=== PATIENT | female | born 2005 | race Caucasian/White ===

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

== ENCOUNTER 2023-01-01 01:58 | Inpatient (IN) ==
[2023-01-01 02:48] LABS: Appearance Urine Cloudy (Clear); Bacteria Urine Automated 2+ (Negative); Bilirubin Urine Negative (Negative); Blood Urine Negative (Negative); Color Urine Yellow; Epithelial Cell Urine Auto >30 /lpf (0-5); Glucose Urine UA Negative (Negative); Ketones Urine Negative (Negative); Leukocyte Esterase Urine 3+ (Negative); Nitrite Urine Negative (Negative); Protein Urine Negative (Negative); RBC Urine Automated 0-4 /hpf (0-4); Specific Gravity Urine 1.007 (1.000-1.030); Urobilinogen Urine Negative (Negative)
[2023-01-01 02:57] LABS: Basophils # (auto) 0.04 K/uL (0-0.2); Basophils % (auto) 0.6 %; Eosinophils # (auto) 0.11 K/uL (0-0.50); Eosinophils % (auto) 1.6 %; Hematocrit (blood only) 36.3 % (37.0-47.0); Hemoglobin 12.5 g/dl (12.0-16.0); Immature Granulocytes # (auto) 0.02 K/uL (0.01-0.20); Immature Granulocytes % (auto) 0.3 %; Lymphocytes # (auto) 2.72 K/uL (1.2-3.4); Lymphocytes % (auto) 38.7 %; Mean Corpuscular Hemoglobin 32.8 pg (25.0-34.0); Mean Corpuscular Hgb Conc 34.4 g/dL (32.0-36.0); Mean Corpuscular Volume 95.3 fL (80.0-100.0); Mean Platelet Volume 10.4 fL (9.4-12.4); Monocytes # (auto) 0.51 K/uL (0.11-0.59); Monocytes % (auto) 7.3 %; Neutrophils # (auto) 3.63 K/uL (1.40-6.50); Neutrophils % (auto) 51.5 %; Platelet Count 348 K/uL (130-400); RDW Coefficient of Variation 11.7 % (11.5-14.5); RDW Standard Deviation 40.6 fL (36.4-46.3); Red Blood Count 3.81 M/uL (4.20-5.40); White Blood Count 7.03 K/ul (4.8-10.8)
[2023-01-01 03:05] LABS: Alanine Aminotransferase 19 U/L (7-52); Albumin Globulin Ratio 1.4 (0.9-2); Albumin Level 4.2 gm/dl (3.4-5.0); Alkaline Phosphatase 76 U/L (34-104); Anion Gap 4 (3-11); Aspartate Aminotransferase 20 U/L (13-39); BUN Creatinine Ratio 11.8 (10-20); Bilirubin,Total 0.7 mg/dl (0.2-1.0); Blood Urea Nitrogen 8 mg/dl (6-23); Calcium 9.3 mg/dl (8.6-10.3); Carbon Dioxide 26 mmol/L (21-32); Chloride 106 mmol/L (98-107); Est GFR (Non-African American) 126.8 ml/min; Glucose 93 mg/dl (70-99(Fasting)); Potassium 3.9 mmol/L (3.5-5.1); Sodium 136 mmol/L (136-145); Total Protein 7.2 gm/dl (6.0-8.3)
[2023-01-01 03:16] LABS: Amphetamines+Metham, Urine Neg (Neg); Barbiturates, Urine Neg (Neg); Benzodiazepine, Urine Neg (Neg); Cocaine, Urine Neg (Neg); MDMA (Ecstacy), Urine Neg (Neg); Methadone, Urine Neg (Neg); Opiate, Urine Neg (Neg); Phencyclidine, Urine Neg (Neg)
--- NOTE | 2023-01-01 07:03 | Emergency Department Note ---
Impression & Plan Suicidal ideation Admit to 3 S. ED Provider Note NAME: MINE GONZALEZ AGE: 17 SEX: F ARRIVES VIA: Walk-In INFORMANT: Patient and his mother ED PROVIDER(S): Kasandra Springer DO CHIEF COMPLAINT: "Effexor withdrawal" PLAN: Disposition: Admit to 3 S. Condition: Stable MEDICAL DECISION MAKING: This is a 17-year-old patient transitioning female to male who presents to the emergency department with suicidal ideation. Patient has had thoughts of wanting to overdose on medications. Patient describes significant emotional pain, high anxiety and disconnection. He has had thoughts of wanting to overdose on his medications. 2 days ago, he told the community case manager he had a handful of pills in preparation to overdose. The patient had been taken off of his Effexor 5 days ago and placed on Pristiq which was associated with significant side effects. The patient had laboratory studies drawn here which were essentially normal. He was medically cleared and evaluated by the ED psychiatric community case manager. Patient does admit to suicidal ideation and is willing to admit himself voluntarily for inpatient psychiatric care. A bed search was performed and there were beds available here on 3 S. They are willing to admit him. Triage Nursing notes reviewed and agree with them. Additional history obtained from his mother who is at the bedside Prior medical records reviewed Vital Signs: reviewed and unremarkable Differential diagnosis: Mood disorder, thought disorder, suicidal ideation Diagnostics interpreted by me: Laboratory studies: See below HPI: 17/F arrives for evaluation of suicidal ideation. Patient presents here complaining of Effexor withdrawal and emotional pain. Patient's last dose of Ef fexor was 5 days ago. They tried to replace this with Pristiq but this did not go well so they stopped that medication. Patient describes feeling high anxiety and disconnected. As a result of this, he felt suicidal with plans to overdose on pills. PAST MEDICAL HISTORY:See Below PAST SURGICAL HISTORY:See Below FAMILY HISTORY:See Below SOCIAL HISTORY:See Below HOME MEDICATIONS:See list ALLERGIES:See list VITALS:See Below PHYSICAL EXAMINATION: HEENT: Head - normocephalic and atraumatic. Pupils are equal, round, and reactive to light. Extraocular eye muscles are intact, and sclera are anicteric. Nose - moist nasal mucosa without discharge. Mouth - moist buccal mucosa. Oropharynx is nonerythematous and there is no tonsillar exudate or edema noted. Neck: Supple; no cervical lymphadenopathy Heart: Regular rate and rhythm. There is a normal S1 and S2 with no murmurs, clicks, or gallops appreciated. Lungs: Clear to auscultation bilaterally with no wheezes, rales, or rhonchi. Abdomen: Soft, completely nontender, nondistended, with good bowel sounds. There are no palpable pulsatile masses or hepatosplenomegaly. There is no guarding, rigidity, or rebound noted. Extremities: No evidence of cyanosis, clubbing, or edema. There are easily palpable peripheral pulses. Skin: warm and dry with good turgor and no rashes. Psych: Patient has a flat affect and avoids eye contact. He describes emotional pain and anxiety. He does not appear anxious on my exam at this time. He does admit to suicidal thoughts. ED COURSE: Times/Reassessments: 405. Patient was evaluated in room A-8. A complete history and physical was performed. Laboratory studies were drawn as above. The patient was medically cleared and evaluated by the ED psychiatric community case manager. The patient is willing to admit himself voluntarily. [facility] has beds available and they will admit him. Kasandra Springer, DO Past Med/Surg History Medical History Anxiety Autism spectrum disorder Functional heart murmur Mood disorder Surgical History No significant past surgical history Social History Smoking Status: Never smoker Preferred Language: [place] Communication Ability: Effective [employer]ine [employer] Required: No Beliefs That Will Affect Care: None Feels Safe at Home: Yes Gender Identity: Transgender Male Assistive Devices: None Allergies Allergies Allergy/AdvReac Type Severity Reaction Status Date / Time diazepam Allergy Severe THROAT Verified 11/09/22 03:08 CLOSING pine nut Allergy Severe THROAT Verified 11/09/22 03:08 CLOSING coconut Allergy Mild "MAKES HER Verified 11/09/22 03:08 FEEL FUNNY" -MOM TREE NUTS Allergy Intermediate HIVES Uncoded 11/09/22 03:08 Home Meds Home Medications Medication Instructions Recorded Confirmed lithium carbonate 300 mg capsule 300 mg PO QAM 01/19/19 01/01/23 gabapentin 100 mg capsule See Rx Instructions .Route .COMPLEX 11/09/22 01/01/23 lithium carbonate 450 mg 450 mg PO QPM 11/09/22 01/01/23 tablet,extended release norelgestromin 150 mcg-e.estradiol 1 patch transdermal WK 11/09/22 01/01/23 35 mcg/24 hr weekly transderm patch (Xulane) desvenlafaxine succinate 25 mg 25 mg PO DAILY 01/01/23 01/01/23 tablet,extended release 24 hr Results & Data (ED) Vital Signs Vital Signs - 24 hr 01/01/23 02:02 01/01/23 06:03 Temperature 36.9 C 36.8 C Temperature Source Temporal Artery Scan Oral Pulse Rate 84 Pulse Rate [Right Finger] 68 Pulse Rhythm Regular Pulse Rhythm [Right Finger] Regular Pulse Strength Normal Pulse Strength [Right Finger] Normal Respiratory Rate 17 16 Respiratory Effort / Characteristics Non-Labored Spontaneous Non-Labored Spontaneous Respiratory Depth Normal Normal Respiratory Pattern Regular Regular Blood Pressure 124/90 Blood Pressure [Right Arm] 127/86 Blood Pressure Mean 101 Blood Pressure Mean [Right Arm] 99 Blood Pressure Position Sitting Blood Pressure Position [Right Arm] Sitting Pulse Oximetry 97 98 Oxygen Delivery Method Room Air Room Air Sepsis Recent Fever Within 48 Hours No Sepsis New/Unexplained Change in Mental Status N/A Sepsis Action Taken by Nursing No Action Required Laboratory Data 01/01/23 02:29 01/01/23 02:29 Lab Results 01/01/23 01/01/23 01/01/23 Range/Units 02:15 02:20 02:20 WBC (4.8-10.8) K/ul RBC (4.20-5.40) M/uL Hgb (12.0-16.0) g/dl Hct (37.0-47.0) % MCV (80.0-100.0) fL MCH (25.0-34.0) pg MCHC (32.0-36.0) g/dL RDW Std Deviation (36.4-46.3) fL RDW Coeff of Braydon (11.5-14.5) % Plt Count (130-400) K/uL MPV (9.4-12.4) fL Immature Gran % (Auto) % Neut % (Auto) % Lymph % (Auto) % [place] % (Auto) % Eos % (Auto) % Baso % (Auto) % Neut # (Auto) (1.40-6.50) K/uL Lymph # (Auto) (1.2-3.4) K/uL [place] # (Auto) (0.11-0.59) K/uL Eos # (Auto) (0-0.50) K/uL Baso # (Auto) (0-0.2) K/uL Immature Gran # (Auto) (0.01-0.20) K/uL Sodium (136-145) mmol/L Potassium (3.5-5.1) mmol/L Chloride (98-107) mmol/L Carbon Dioxide (21-32) mmol/L Anion Gap (3-11) BUN (6-23) mg/dl Creatinine (0.6-1.2) mg/dl Est Cr Clr Drug Dosing Est GFR ( Amer) ml/min Est GFR (Non-Af Amer) ml/min BUN/Creatinine Ratio (10-20) Glucose (70-99(Fasting)) mg/dl Calcium (8.6-10.3) mg/dl Total Bilirubin (0.2-1.0) mg/dl AST (13-39) U/L ALT (7-52) U/L Alkaline Phosphatase (34-104) U/L Total Protein (6.0-8.3) gm/dl Albumin (3.4-5.0) gm/dl Globulin (2.5-4.0) gm/dl Albumin/Globulin Ratio (0.9-2) TSH (0.300-4.500) uIu/ml Urine Color Yellow Urine Appearance Cloudy A (Clear) Urine pH 8.0 H (4.5-7.5) Ur Specific [place] 1.007 (1.000-1.030) Urine Protein Negative (Negative) Urine Glucose (UA) Negative (Negative) Urine Ketones Negative (Negative) Urine Blood Negative (Negative) Urine Nitrite Negative (Negative) Urine Bilirubin Negative (Negative) Urine Urobilinogen Negative (Negative) Ur Leukocyte Esterase 3+ H (Negative) Urine WBC (Auto) 10-30 H (0-5) /hpf Urine RBC (Auto) 0-4 (0-4) /hpf U Hyaline Cast (Auto) 1-5 (0-5) /lpf U Epithel Cells (Auto) >30 H (0-5) /lpf Urine Bacteria (Auto) 2+ H (Negative) POC Ur Test (NEG) Urine Opiates Screen Neg (Neg) Ur Methadone, Qual Neg (Neg) Urine Barbiturates Neg (Neg) Ur Phencyclidine (PCP) Neg (Neg) U Amphetamin/Meth Scrn Neg (Neg) MDMA (Ecstasy) Screen Neg (Neg) U Benzodiazepines Scrn Neg (Neg) Ur Cocaine Metabolite Neg (Neg) U Marijuana (THC) Screen Neg (Neg) Ethyl Alcohol mg/dL (<10.0) mg/dl SARS-CoV-2, RNA, NAAT NEGATIVE (NEGATIVE) 01/01/23 01/01/23 01/01/23 Range/Units 02:20 02:29 02:29 WBC 7.03 (4.8-10.8) K/ul RBC 3.81 L (4.20-5.40) M/uL Hgb 12.5 (12.0-16.0) g/dl Hct 36.3 L (37.0-47.0) % MCV 95.3 (80.0-100.0) fL MCH 32.8 (25.0-34.0) pg MCHC 34.4 (32.0-36.0) g/dL RDW Std Deviation 40.6 (36.4-46.3) fL RDW Coeff of Braydon 11.7 (11.5-14.5) % Plt Count 348 (130-400) K/uL MPV 10.4 (9.4-12.4) fL Immature Gran % (Auto) 0.3 % Neut % (Auto) 51.5 % Lymph % (Auto) 38.7 % [place] % (Auto) 7.3 % Eos % (Auto) 1.6 % Baso % (Auto) 0.6 % Neut # (Auto) 3.63 (1.40-6.50) K/uL Lymph # (Auto) 2.72 (1.2-3.4) K/uL [place] # (Auto) 0.51 (0.11-0.59) K/uL Eos # (Auto) 0.11 (0-0.50) K/uL Baso # (Auto) 0.04 (0-0.2) K/uL Immature Gran # (Auto) 0.02 (0.01-0.20) K/uL Sodium 136 (136-145) mmol/L Potassium 3.9 (3.5-5.1) mmol/L Chloride 106 (98-107) mmol/L Carbon Dioxide 26 (21-32) mmol/L Anion Gap 4 (3-11) BUN 8 (6-23) mg/dl Creatinine 0.68 (0.6-1.2) mg/dl Est Cr Clr Drug Dosing Not Reportable Est GFR ( Amer) 147.0 ml/min Est GFR (Non-Af Amer) 126.8 ml/min BUN/Creatinine Ratio 11.8 (10-20) Glucose 93 (70-99(Fasting)) mg/dl Calcium 9.3 (8.6-10.3) mg/dl Total Bilirubin 0.7 (0.2-1.0) mg/dl AST 20 (13-39) U/L ALT 19 (7-52) U/L Alkaline Phosphatase 76 (34-104) U/L Total Protein 7.2 (6.0-8.3) gm/dl Albumin 4.2 (3.4-5.0) gm/dl Globulin 3.0 (2.5-4.0) gm/dl Albumin/Globulin Ratio 1.4 (0.9-2) TSH (0.300-4.500) uIu/ml Urine Color Urine Appearance (Clear) Urine pH (4.5-7.5) Ur Specific [place] (1.000-1.030) Urine Protein (Negative) Urine Glucose (UA) (Negative) Urine Ketones (Negative) Urine Blood (Negative) Urine Nitrite (Negative) Urine Bilirubin (Negative) Urine Urobilinogen (Negative) Ur Leukocyte Esterase (Negative) Urine WBC (Auto) (0-5) /hpf Urine RBC (Auto) (0-4) /hpf U Hyaline Cast (Auto) (0-5) /lpf U Epithel Cells (Auto) (0-5) /lpf Urine Bacteria (Auto) (Negative) POC Ur Test NEG (NEG) Urine Opiates Screen (Neg) Ur Methadone, Qual (Neg) Urine Barbiturates (Neg) Ur Phencyclidine (PCP) (Neg) U Amphetamin/Meth Scrn (Neg) MDMA (Ecstasy) Screen (Neg) U Benzodiazepines Scrn (Neg) Ur Cocaine Metabolite (Neg) U Marijuana (THC) Screen (Neg) Ethyl Alcohol mg/dL (<10.0) mg/dl SARS-CoV-2, RNA, NAAT (NEGATIVE) 01/01/23 01/01/23 Range/Units 02:29 02:29 WBC (4.8-10.8) K/ul RBC (4.20-5.40) M/uL Hgb (12.0-16.0) g/dl Hct (37.0-47.0) % MCV (80.0-100.0) fL MCH (25.0-34.0) pg MCHC (32.0-36.0) g/dL RDW Std Deviation (36.4-46.3) fL RDW Coeff of Braydon (11.5-14.5) % Plt Count (130-400) K/uL MPV (9.4-12.4) fL Immature Gran % (Auto) % Neut % (Auto) % Lymph % (Auto) % [place] % (Auto) % Eos % (Auto) % Baso % (Auto) % Neut # (Auto) (1.40-6.50) K/uL Lymph # (Auto) (1.2-3.4) K/uL [place] # (Auto) (0.11-0.59) K/uL Eos # (Auto) (0-0.50) K/uL Baso # (Auto) (0-0.2) K/uL Immature Gran # (Auto) (0.01-0.20) K/uL Sodium (136-145) mmol/L Potassium (3.5-5.1) mmol/L Chloride (98-107) mmol/L Carbon Dioxide (21-32) mmol/L Anion Gap (3-11) BUN (6-23) mg/dl Creatinine (0.6-1.2) mg/dl Est Cr Clr Drug Dosing Est GFR ( Amer) ml/min Est GFR (Non-Af Amer) ml/min BUN/Creatinine Ratio (10-20) Glucose (70-99(Fasting)) mg/dl Calcium (8.6-10.3) mg/dl Total Bilirubin (0.2-1.0) mg/dl AST (13-39) U/L ALT (7-52) U/L Alkaline Phosphatase (34-104) U/L Total Protein (6.0-8.3) gm/dl Albumin (3.4-5.0) gm/dl Globulin (2.5-4.0) gm/dl Albumin/Globulin Ratio (0.9-2) TSH 1.609 (0.300-4.500) uIu/ml Urine Color Urine Appearance (Clear) Urine pH (4.5-7.5) Ur Specific [place] (1.000-1.030) Urine Protein (Negative) Urine Glucose (UA) (Negative) Urine Ketones (Negative) Urine Blood (Negative) Urine Nitrite (Negative) Urine Bilirubin (Negative) Urine Urobilinogen (Negative) Ur Leukocyte Esterase (Negative) Urine WBC (Auto) (0-5) /hpf Urine RBC (Auto) (0-4) /hpf U Hyaline Cast (Auto) (0-5) /lpf U Epithel Cells (Auto) (0-5) /lpf Urine Bacteria (Auto) (Negative) POC Ur Test (NEG) Urine Opiates Screen (Neg) Ur Methadone, Qual (Neg) Urine Barbiturates (Neg) Ur Phencyclidine (PCP) (Neg) U Amphetamin/Meth Scrn (Neg) MDMA (Ecstasy) Screen (Neg) U Benzodiazepines Scrn (Neg) Ur Cocaine Metabolite (Neg) U Marijuana (THC) Screen (Neg) Ethyl Alcohol mg/dL < 10.0 (<10.0) mg/dl SARS-CoV-2, RNA, NAAT (NEGATIVE) Administered Medications Hydroxyzine HCl (Hydroxyzine Hcl 25 Mg Tab) 25 mg PO Q4H PRN PRN Reason: Anxiety Stop: 01/31/23 08:16 Last Admin: 01/01/23 13:47 Dose: 25 mg Documented By: YOSVANY Discharge Plan Visit Data Chief Complaint: Anxiety Stated Complaint: ANXIETY, COMING OFF MEDS, [facility] ED Provider: Kasandra Springer Discharge Problem: Suicidal ideation Patient Disposition: Admitted As Inpatient Discharge Instructions Interventions: ED Discharge Assessment Last Done: 01/01/23 08:50
[2023-01-01] MEDS ORDERED: hydrOXYzine HCl 25 MG TAB PO PRN (08:17)
[2023-01-01] MEDS ORDERED: ALUMINUM/MAGNESIUM SUSP 30 ML UDC PO PRN (08:17)
[2023-01-01] MEDS ORDERED: ACETAMINOPHEN 325 MG TAB PO PRN (08:17)
[2023-01-01] MEDS ORDERED: MAGNESIUM HYDROXIDE SUSP 30 ML UDC PO PRN (08:17)
[2023-01-01] MEDS ORDERED: SODIUM CHLORIDE 0.65% NA SOLN 45 ML (OCEAN) PRN (08:17)
[2023-01-01] MEDS ORDERED: BISMUTH SUBSALICYLATE LIQD 236 ML PO PRN (08:17)
[2023-01-01] MEDS: hydrOXYzine HCl 25 MG TAB PO PRN (13:47)
[2023-01-01] MEDS ORDERED: VENLAFAXINE HCL XR 75 MG CAPXR PO ONE (18:20)
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
[2023-01-02] MEDS: DULoxetine HCL 20 MG CAP PO SCH (11:10)
--- NOTE | 2023-01-02 15:15 | Psychiatric Progress Note ---
Date of Service January 02, 2023 Impression / Recommendations Impression 17 y/o biological F identifying as M with a history of ASD, PTSD, and apparent Bipolar Disorder who lives with mother and younger sister and seems to have practically no activities. For vague reasons has tapered off venlafaxine and now reports discontinuation symptoms exacerbating his chronic and usually passive suicidal thoughts. 01/02/2023: Pt looks better today, not exhibiting tremor, encountered in the activity room interacting with peers. Says he no longer feels as if he's having any "Effexor withdrawal" and that it took a couple of hours after he got venlafaxine yesterday for that to clear. However, he still does not want to resume that medication despite a history of some benefit in terms of anxiety. He is interested in a trial of duloxetine. 01/01/2023: I discussed my strong opinion that stopping a medication simply because it might be hard to stop makes little sense, especially if there's reason to think that medication might be helpful. Discussed that in my view SNRI's would seem to make very good sense for his historically reported problems of generalized anxiety, PTSD, and depressed mood and that if the goal is to avoid venlafaxine for whatever reason, then desvenlafaxine offers very little difference. I suggested strongly considering duloxetine, which is chemically distinct but offers the same clinical advantages. I did not go into detail with pt about other advantages including pharmacological differences in that venlafaxine primarily serotonergic at low doses and may not be significantly noradrenergic at doses much below 225 mg/day while duloxetine is serotonergic and noradrenergic at fairly consistent ratio across the dose range. I think the most effective and fastest way to stop venlafaxine discontinuation effects is to administer venlafaxine. I'm not fully convinced that pt is having significant SNRI discontinuation symptoms and wonder to what degree this might be induced given his difficulty reporting any specific symptoms and his family's strong interest in his stopping the medication. What is clear is that he is currently feeling overwhelmed, irrespective of the etiology. (1) Bipolar disorder, in full remission, most recent episode mixed: (2) Post traumatic stress disorder (PTSD): (3) Autism spectrum disorder: Plan 01/02/2023: Reviewed known risks and anticipated benefits of, and alternatives to, a trial of duloxetine ("Cymbalta") for depressed mood, generalized anxiety, and PTSD symptoms including but not limited to headache, GI side effects, rare elevated blood pressure, quite rare severe diaphoresis, and known risk of unpleasant discontinuation symtoms with abrupt cessation. Pt provided informed consent for a trial of this medication. * duloxetine 20 mg daily, titrate to 60 mg daily contingent on tolerability * continue LiCO3 300 mg QAM & 450 mg QHS, consider consolidation to single HS dose to reduce long-term renal risk * continue gabapentin 100 mg QAM & 200 mg QHS (used primarily for anxiety) * continue noelgestromin/ethinyl estradiol patch (used for premenstrual mood and anxiety exacerbations) 01/01/2023: The patient was admitted to the [facility] ([facility] mental health unit) on q15 min checks (behavioral with suicide precautions) for safety. The patient will participate in group, recreational, and milieu therapies and will be offered additional individual and family sessions as clinically appropriate. Discussed venlafaxine as fastest and most effective means of treating venlafaxine discontinuation Sx and pt agreed to a dose today. We discussed options of having family bring in desvenlafaxine (non-formulary here) vs a trial of duloxetine and I asked him to think about his preferences. * continue LiCO3 300 mg QAM & 450 mg QHS, consider consolidation to single HS dose to reduce long-term renal risk * continue gabapentin 100 mg QAM & 200 mg QHS (used primarily for anxiety) * continue noelgestromin/ethinyl estradiol patch (used for premenstrual mood and anxiety exacerbations) Inventory Assets Strengths: supportive relationships, voluntary Needs: safety and stabilization, medication adjustment, additional coping skills, increased outpatient services Suicide Risk Level Suicide Risk Level: Low (q15 min observation checks) Suicide Risk Level Comments: disavows any suicidal intent or plan despite chronic passive suicidal thoughts Risk Factors Assessment : Yes Do You Have Access To A Gun?: No Mental Health Diagnoses: Yes Substance Use Disorders: No Previous Attempt: Yes Previous Psychiatric Hospitalization: Yes Protective Factors Assessment Employed: No Supportive Family: Yes Interval History Identifying Information "MARY ELLEN" CARLOS is a 17 y/o biological F identifying as M with a history of ASD, PTSD, and apparent Bipolar Disorder who lives with mother and younger sister and seems to have practically no activities. For vague reasons has tapered off venlafaxine and now reports discontinuation symptoms exacerbating his chronic and usually passive suicidal thoughts. Chief Complaint "Things are better today". Review of Systems Sleep Information Total Hours of Sleep: 6.5 Meal Information Percent Meal Consumed - Breakfast: 100 Percent Meal Consumed - Lunch: 100 Percent Meal Consumed - Dinner: 50 Subjective Subjective Patient was seen & assessed and interval progress reviewed in a multidisciplinary team meeting with the treatment team. For details, see the "Impression" section below. Physical Exam Psychiatric Orientation: alert, oriented to person, oriented to place, oriented to time and cooperative Apperance: appropriately dressed (stereotypically), appropriately groomed and appeared stated age Eye Contact: + fair eye contact Motor Behavior: n tremor Speech: normal rate/rhythm/volume of speech Affect: + constricted affect Mood: + anxious mood Thought Process: clear/coherent thought process Thought Content: + cognitive distortions Suicidal Thoughts: denies suicidal plan and denies suicidal intent; + reports suicidal thoughts (chronic, passive suicidal thoughts) Homicidal Thoughts: denies homicidal thoughts Hallucinations: no auditory hallucinations and no visual hallucinations Cognition: recent memory grossly intact and remote memory grossly intact; + attention not intact Estimated Intelligence: average estimated intelligence Insight: + limited insight Judgment: + limited judgement Vital Signs (Past 24 Hours) Last Vital Signs Temp 36.9 C 01/02/23 06:50 Pulse 73 01/02/23 06:51 Resp 16 01/02/23 06:50 BP 142/98 H 01/02/23 06:51 Pulse Ox 98 01/01/23 09:00 O2 Del Method Room Air 01/01/23 09:00 Results & Data ([facility]) Current Inpatient Medications Current Inpatient Medications: Current Inpatient Medications Acetaminophen (Acetaminophen 325 Mg Tab) 650 mg PO Q4H PRN PRN Reason: Headache or Minor Fever Stop: 01/31/23 08:16 Al Hydrox/Mg Hydrox/Simethicone (Aluminum/Magnesium Susp 30 Ml Udc) 30 ml PO Q4H PRN PRN Reason: GI Upset Stop: 01/31/23 08:16 Bismuth Subsalicylate (Bismuth Subsalicylate Liqd 236 Ml) 15 ml PO PRN PRN PRN Reason: Loose Stool Stop: 01/31/23 08:16 Duloxetine HCl (Duloxetine Hcl 20 Mg Cap) 20 mg PO QAM DEVON Stop: 02/01/23 10:29 Last Admin: 01/02/23 11:10 Dose: 20 mg Gabapentin (Gabapentin 100 Mg Cap) 100 mg PO QAM DEVON Stop: 02/01/23 14:59 Gabapentin (Gabapentin 100 Mg Cap) 200 mg PO QPM DEVON Stop: 02/01/23 20:59 Hydroxyzine HCl (Hydroxyzine Hcl 25 Mg Tab) 50 mg PO HSZ PRN PRN Reason: Insomnia Stop: 01/31/23 08:16 Hydroxyzine HCl (Hydroxyzine Hcl 25 Mg Tab) 25 mg PO Q4H PRN PRN Reason: Anxiety Stop: 01/31/23 08:16 Last Admin: 01/01/23 13:47 Dose: 25 mg [place] Carbonate ([place] Carbonate 300 Mg Tab) 300 mg PO QAM DEVON Stop: 02/01/23 14:59 [place] Carbonate ([place] Carbonate 450 Mg Tabcr) 450 mg PO QPM DEVON Stop: 02/01/23 20:59 Magnesium Hydroxide (Magnesium Hydroxide Susp 30 Ml Udc) 30 ml PO DAILY PRN PRN Reason: Constipation Stop: 01/31/23 08:16 Miscellaneous (Norelgestromin-Ethin.Estradiol [Xulane] 150-35 Mcg/24 Hr Patch ~ Order Awaiting Action) 1 each N/A QS DEVON Stop: 02/01/23 15:59 Sodium Chloride (Sodium Chloride 0.65% Na Soln 45 Ml ([facility])) 1 - 2 sprays NA PRN PRN PRN Reason: Nasal Dryness/Congestion Stop: 01/31/23 08:16 Mental Health & Subst Abuse Tx Therapist Name of Therapist: [facility] Nurse Practitioner Home Assessments Name of Nurse Practitioner Home Assessments: None
[2023-01-02] MEDS: GABAPENTIN 100 MG CAP PO SCH ×3 (16:41→21:25)
[2023-01-02] MEDS: LITHIUM CARBONATE 300 MG TAB PO SCH (16:42)
[2023-01-02] MEDS: LITHIUM CARBONATE 450 MG TABCR PO SCH (21:25)
[2023-01-03] MEDS: LITHIUM CARBONATE 300 MG TAB PO SCH (09:25)
[2023-01-03] MEDS: DULoxetine HCL 20 MG CAP PO SCH (09:32)
--- NOTE | 2023-01-03 12:36 | Psychiatric Progress Note ---
Date of Service January 03, 2023 Impression / Recommendations Impression 17 y/o biological F identifying as M with a history of ASD, PTSD, and apparent Bipolar Disorder who lives with mother and younger sister and seems to have practically no activities. For vague reasons has tapered off venlafaxine and now reports discontinuation symptoms exacerbating his chronic and usually passive suicidal thoughts. 01/02/2023: Pt looks better today, not exhibiting tremor, encountered in the activity room interacting with peers. Says he no longer feels as if he's having any "Effexor withdrawal" and that it took a couple of hours after he got venlafaxine yesterday for that to clear. However, he still does not want to resume that medication despite a history of some benefit in terms of anxiety. He is interested in a trial of duloxetine. 01/01/2023: I discussed my strong opinion that stopping a medication simply because it might be hard to stop makes little sense, especially if there's reason to think that medication might be helpful. Discussed that in my view SNRI's would seem to make very good sense for his historically reported problems of generalized anxiety, PTSD, and depressed mood and that if the goal is to avoid venlafaxine for whatever reason, then desvenlafaxine offers very little difference. I suggested strongly considering duloxetine, which is chemically distinct but offers the same clinical advantages. I did not go into detail with pt about other advantages including pharmacological differences in that venlafaxine primarily serotonergic at low doses and may not be significantly noradrenergic at doses much below 225 mg/day while duloxetine is serotonergic and noradrenergic at fairly consistent ratio across the dose range. I think the most effective and fastest way to stop venlafaxine discontinuation effects is to administer venlafaxine. I'm not fully convinced that pt is having significant SNRI discontinuation symptoms and wonder to what degree this might be induced given his difficulty reporting any specific symptoms and his family's strong interest in his stopping the medication. What is clear is that he is currently feeling overwhelmed, irrespective of the etiology. (1) Bipolar disorder, in full remission, most recent episode mixed: (2) Post traumatic stress disorder (PTSD): (3) Autism spectrum disorder: Plan 01/02/2023: Reviewed known risks and anticipated benefits of, and alternatives to, a trial of duloxetine ("Cymbalta") for depressed mood, generalized anxiety, and PTSD symptoms including but not limited to headache, GI side effects, rare elevated blood pressure, quite rare severe diaphoresis, and known risk of unpleasant discontinuation symtoms with abrupt cessation. Pt provided informed consent for a trial of this medication. * duloxetine 20 mg daily, titrate to 60 mg daily contingent on tolerability * continue LiCO3 300 mg QAM & 450 mg QHS, consider consolidation to single HS dose to reduce long-term renal risk * continue gabapentin 100 mg QAM & 200 mg QHS (used primarily for anxiety) * continue noelgestromin/ethinyl estradiol patch (used for premenstrual mood and anxiety exacerbations) 01/01/2023: The patient was admitted to the [facility] ([facility] health unit) on q15 min checks (behavioral with suicide precautions) for safety. The patient will participate in group, recreational, and milieu therapies and will be offered additional individual and family sessions as clinically appropriate. Discussed venlafaxine as fastest and most effective means of treating venlafaxine discontinuation Sx and pt agreed to a dose today. We discussed options of having family bring in desvenlafaxine (non-formulary here) vs a trial of duloxetine and I asked him to think about his preferences. * continue LiCO3 300 mg QAM & 450 mg QHS, consider consolidation to single HS dose to reduce long-term renal risk * continue gabapentin 100 mg QAM & 200 mg QHS (used primarily for anxiety) * continue noelgestromin/ethinyl estradiol patch (used for premenstrual mood and anxiety exacerbations) Inventory Assets Strengths: supportive relationships, voluntary Needs: safety and stabilization, medication adjustment, additional coping skills, increased outpatient services Suicide Risk Level Suicide Risk Level: Low (q15 min observation checks) Suicide Risk Level Comments: disavows any suicidal intent or plan despite chronic passive suicidal thoughts Risk Factors Assessment : Yes Do You Have Access To A Gun?: No Mental Health Diagnoses: Yes Substance Use Disorders: No Previous Attempt: Yes Previous Psychiatric Hospitalization: Yes Protective Factors Assessment Employed: No Supportive Family: Yes Interval History Identifying Information "MARY ELLEN" CARLOS is a 17 y/o biological F identifying as M with a history of ASD, PTSD, and apparent Bipolar Disorder who lives with mother and younger sister and seems to have practically no activities. For vague reasons has tapered off venlafaxine and now reports discontinuation symptoms exacerbating his chronic and usually passive suicidal thoughts. Chief Complaint "[]". Review of Systems Sleep Information Total Hours of Sleep: 7 Meal Information Percent Meal Consumed - Breakfast: 0 Percent Meal Consumed - Lunch: 100 Percent Meal Consumed - Dinner: 50 Subjective Subjective Patient was seen & assessed and interval progress reviewed with [treatment team] [nursing and social work] Physical Exam Psychiatric Orientation: alert, oriented to person, oriented to place, oriented to time and cooperative Apperance: appropriately dressed (stereotypically), appropriately groomed and appeared stated age Eye Contact: + fair eye contact Motor Behavior: n tremor Speech: normal rate/rhythm/volume of speech Affect: + constricted affect Mood: + anxious mood Thought Process: clear/coherent thought process Thought Content: + cognitive distortions Suicidal Thoughts: denies suicidal plan and denies suicidal intent; + reports suicidal thoughts (chronic, passive suicidal thoughts) Homicidal Thoughts: denies homicidal thoughts Hallucinations: no auditory hallucinations and no visual hallucinations Cognition: recent memory grossly intact and remote memory grossly intact; + attention not intact Estimated Intelligence: average estimated intelligence Insight: + limited insight Judgment: + limited judgement Vital Signs (Past 24 Hours) Last Vital Signs Temp 36.7 C 01/03/23 06:45 Pulse 67 01/03/23 06:46 Resp 16 01/03/23 06:45 BP 133/93 01/03/23 06:46 Pulse Ox 98 01/01/23 09:00 O2 Del Method Room Air 01/01/23 09:00 Results & Data ([facility]) Current Inpatient Medications Current Inpatient Medications: Current Inpatient Medications Acetaminophen (Acetaminophen 325 Mg Tab) 650 mg PO Q4H PRN PRN Reason: Headache or Minor Fever Stop: 01/31/23 08:16 Al Hydrox/Mg Hydrox/Simethicone (Aluminum/Magnesium Susp 30 Ml Udc) 30 ml PO Q4H PRN PRN Reason: GI Upset Stop: 01/31/23 08:16 Bismuth Subsalicylate (Bismuth Subsalicylate Liqd 236 Ml) 15 ml PO PRN PRN PRN Reason: Loose Stool Stop: 01/31/23 08:16 Duloxetine HCl (Duloxetine Hcl 20 Mg Cap) 20 mg PO QAM DEVON Stop: 02/01/23 10:29 Last Admin: 01/03/23 09:32 Dose: Not Given Gabapentin (Gabapentin 100 Mg Cap) 100 mg PO QAM DEVON Stop: 02/01/23 14:59 Last Admin: 01/02/23 21:24 Dose: 100 mg Gabapentin (Gabapentin 100 Mg Cap) 200 mg PO QPM DEVON Stop: 02/01/23 20:59 Last Admin: 01/02/23 21:25 Dose: 200 mg Hydroxyzine HCl (Hydroxyzine Hcl 25 Mg Tab) 50 mg PO HSZ PRN PRN Reason: Insomnia Stop: 01/31/23 08:16 Hydroxyzine HCl (Hydroxyzine Hcl 25 Mg Tab) 25 mg PO Q4H PRN PRN Reason: Anxiety Stop: 01/31/23 08:16 Last Admin: 01/01/23 13:47 Dose: 25 mg [place] Carbonate ([place] Carbonate 300 Mg Tab) 300 mg PO QAM DEVON Stop: 02/01/23 15:44 Last Admin: 01/03/23 09:25 Dose: 300 mg [place] Carbonate ([place] Carbonate 450 Mg Tabcr) 450 mg PO QPM DEVON Stop: 02/01/23 20:59 Last Admin: 01/02/23 21:25 Dose: 450 mg Magnesium Hydroxide (Magnesium Hydroxide Susp 30 Ml Udc) 30 ml PO DAILY PRN PRN Reason: Constipation Stop: 01/31/23 08:16 Miscellaneous (Norelgestromin-Ethin.Estradiol [Xulane] 150-35 Mcg/24 Hr Patch ~ Order Awaiting Action) 1 each N/A QS DEVON Stop: 02/01/23 15:59 Last Admin: 01/02/23 16:05 Dose: Not Given Sodium Chloride (Sodium Chloride 0.65% Na Soln 45 Ml ([place])) 1 - 2 sprays NA PRN PRN PRN Reason: Nasal Dryness/Congestion Stop: 01/31/23 08:16 Mental Health & Subst Abuse Tx Psychiatrist Name of Psychiatrist: Suri Dash Psychiatrist's Date Of Appointment With Psychiatric Provider: 01/11/23 Time of Appointment with Psychiatrist: 2:40 PM Psychiatric Appointment Comment: [address] [facility], [place] [address] Therapist Name of Therapist: Dustin Madrigal Therapist's Time of Therapist Appointment: [address], [address] [place], [place] [address] Therapy Appointment Comment: Please resume your normal therapy schedule. Certified Mortician Name of Certified Mortician: None Post Discharge Appointments Primary Care Physician Name Of Family Doctor/PCP: Reynold Talavera [facility] Time of Appointment with PCP: Sánchez Mcghee, [place] [id number] Provider Appointment Comment: Please follow-up with your PCP as needed. Contact Information Discharge Discharge Address: [address] [place] [address] [place], [place], [place] [id number]
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
[2023-01-03] MEDS: hydrOXYzine HCl 25 MG TAB PO PRN (14:41)
--- NOTE | 2023-01-03 20:30 | Psychiatric Progress Note ---
Date of Service January 03, 2023 Impression / Recommendations Impression 17 y/o biological F identifying as M with a history of ASD, PTSD, and apparent Bipolar Disorder who lives with mother and younger sister and seems to have practically no activities. For vague reasons has tapered off venlafaxine and now reports discontinuation symptoms exacerbating his chronic and usually passive suicidal thoughts. 01/03/2023: Discharge had been anticipated today, but following a family meeting this afternoon, pt felt overwhelmed and didn't think he'd be safe at home. Decided not to continue duloxetine for the same reason he'd stopped venlafaxine: that there might be discontinuation symptoms if stopped abruptly. He does not wish to make any further medication changes. On reassessment after the family meeting lies in bed curled on his side making little eye contact and speaking very quietly and briefly. Denies suicidal thoughts and says he thinks he "might" be ready to discharge tomorrow. 01/02/2023: Pt looks better today, not exhibiting tremor, encountered in the activity room interacting with peers. Says he no longer feels as if he's having any "Effexor withdrawal" and that it took a couple of hours after he got venlafaxine yesterday for that to clear. However, he still does not want to resume that medication despite a history of some benefit in terms of anxiety. He is interested in a trial of duloxetine. 01/01/2023: I discussed my strong opinion that stopping a medication simply because it might be hard to stop makes little sense, especially if there's reason to think that medication might be helpful. Discussed that in my view SNRI's would seem to make very good sense for his historically reported problems of generalized anxiety, PTSD, and depressed mood and that if the goal is to avoid venlafaxine for whatever reason, then desvenlafaxine offers very little difference. I suggested strongly considering duloxetine, which is chemically distinct but offers the same clinical advantages. I did not go into detail with pt about other advantages including pharmacological differences in that venlafaxine primarily serotonergic at low doses and may not be significantly noradrenergic at doses much below 225 mg/day while duloxetine is serotonergic and noradrenergic at fair ly consistent ratio across the dose range. I think the most effective and fastest way to stop venlafaxine discontinuation effects is to administer venlafaxine. I'm not fully convinced that pt is having significant SNRI discontinuation symptoms and wonder to what degree this might be induced given his difficulty reporting any specific symptoms and his family's strong interest in his stopping the medication. What is clear is that he is currently feeling overwhelmed, irrespective of the etiology. (1) Bipolar I disorder, most recent episode mixed, moderate: (2) Post traumatic stress disorder (PTSD): (3) Autism spectrum disorder: Plan 01/03/2023: * anticipate discharge tomorrow * discontinue duloxetine * continue LiCO3 300 mg QAM & 450 mg QHS, consider consolidation to single HS dose to reduce long-term renal risk * continue gabapentin 100 mg QAM & 200 mg QHS (used primarily for anxiety) * continue noelgestromin/ethinyl estradiol patch (used for premenstrual mood and anxiety exacerbations) 01/02/2023: Reviewed known risks and anticipated benefits of, and alternatives to, a trial of duloxetine ("Cymbalta") for depressed mood, generalized anxiety, and PTSD symptoms including but not limited to headache, GI side effects, rare elevated blood pressure, quite rare severe diaphoresis, and known risk of unpleasant discontinuation symtoms with abrupt cessation. Pt provided informed consent for a trial of this medication. * start duloxetine 20 mg daily, titrate to 60 mg daily contingent on tolerability * continue LiCO3 300 mg QAM & 450 mg QHS, consider consolidation to single HS dose to reduce long-term renal risk * continue gabapentin 100 mg QAM & 200 mg QHS (used primarily for anxiety) * continue noelgestromin/ethinyl estradiol patch (used for premenstrual mood and anxiety exacerbations) 01/01/2023: The patient was admitted to the [facility] ([facility]) on q15 min checks (behavioral with suicide precautions) for safety. The patient will participate in group, recreational, and milieu therapies and will be offered additional individual and family sessions as clinically appropriate. Discussed venlafaxine as fastest and most effective means of treating venlafaxine discontinuation Sx and pt agreed to a dose today. We discussed options of having family bring in desvenlafaxine (non-formulary here) vs a trial of duloxetine and I asked him to think about his preferences. * continue LiCO3 300 mg QAM & 450 mg QHS, consider consolidation to single HS dose to reduce long-term renal risk * continue gabapentin 100 mg QAM & 200 mg QHS (used primarily for anxiety) * continue noelgestromin/ethinyl estradiol patch (used for premenstrual mood and anxiety exacerbations) Suicide Risk Level Suicide Risk Level: Low (q15 min observation checks) Risk Factors Assessment : Yes Do You Have Access To A Gun?: No Mental Health Diagnoses: Yes Substance Use Disorders: No Previous Attempt: Yes Previous Psychiatric Hospitalization: Yes Protective Factors Assessment Employed: No Supportive Family: Yes Interval History Chief Complaint "[]". Review of Systems Sleep Information Total Hours of Sleep: 7 Meal Information Percent Meal Consumed - Breakfast: 0 Percent Meal Consumed - Lunch: 100 Percent Meal Consumed - Dinner: 100 Subjective Subjective Patient was seen & assessed and interval progress reviewed with [treatment team] [nursing and social work] Physical Exam Psychiatric Orientation: alert, oriented to person, oriented to place, oriented to time and cooperative Apperance: appropriately dressed (stereotypically), appropriately groomed and appeared stated age Eye Contact: + fair eye contact Motor Behavior: n tremor Speech: normal rate/rhythm/volume of speech Affect: + constricted affect Mood: + anxious mood Thought Process: clear/coherent thought process Thought Content: + cognitive distortions Suicidal Thoughts: denies suicidal plan and denies suicidal intent; + reports suicidal thoughts (chronic, passive suicidal thoughts) Homicidal Thoughts: denies homicidal thoughts Hallucinations: no auditory hallucinations and no visual hallucinations Cognition: recent memory grossly intact and remote memory grossly intact; + attention not intact Estimated Intelligence: average estimated intelligence Insight: + limited insight Judgment: + limited judgement Vital Signs (Past 24 Hours) Last Vital Signs Temp 36.7 C 01/03/23 06:45 Pulse 67 01/03/23 06:46 Resp 16 01/03/23 06:45 BP 133/93 01/03/23 06:46 Pulse Ox 98 01/01/23 09:00 O2 Del Method Room Air 01/01/23 09:00 Results & Data ([facility]) Current Inpatient Medications Current Inpatient Medications: Current Inpatient Medications Acetaminophen (Acetaminophen 325 Mg Tab) 650 mg PO Q4H PRN PRN Reason: Headache or Minor Fever Stop: 01/31/23 08:16 Al Hydrox/Mg Hydrox/Simethicone (Aluminum/Magnesium Susp 30 Ml Udc) 30 ml PO Q4H PRN PRN Reason: GI Upset Stop: 01/31/23 08:16 Bismuth Subsalicylate (Bismuth Subsalicylate Liqd 236 Ml) 15 ml PO PRN PRN PRN Reason: Loose Stool Stop: 01/31/23 08:16 Duloxetine HCl (Duloxetine Hcl 20 Mg Cap) 20 mg PO QAM [facility] Stop: 02/01/23 10:29 Last Admin: 01/03/23 09:32 Dose: Not Given Gabapentin (Gabapentin 100 Mg Cap) 100 mg PO QAM [facility] Stop: 02/01/23 14:59 Last Admin: 01/02/23 21:24 Dose: 100 mg Gabapentin (Gabapentin 100 Mg Cap) 200 mg PO QPM [facility] Stop: 02/01/23 20:59 Last Admin: 01/02/23 21:25 Dose: 200 mg Hydroxyzine HCl (Hydroxyzine Hcl 25 Mg Tab) 50 mg PO HSZ PRN PRN Reason: Insomnia Stop: 01/31/23 08:16 Hydroxyzine HCl (Hydroxyzine Hcl 25 Mg Tab) 25 mg PO Q4H PRN PRN Reason: Anxiety Stop: 01/31/23 08:16 Last Admin: 01/03/23 14:41 Dose: 25 mg Zortman Carbonate (Zortman Carbonate 300 Mg Tab) 300 mg PO QAM [facility] Stop: 02/01/23 15:44 Last Admin: 01/03/23 09:25 Dose: 300 mg Zortman Carbonate (Zortman Carbonate 450 Mg Tabcr) 450 mg PO QPM [facility] Stop: 02/01/23 20:59 Last Admin: 01/02/23 21:25 Dose: 450 mg Magnesium Hydroxide (Magnesium Hydroxide Susp 30 Ml Udc) 30 ml PO DAILY PRN PRN Reason: Constipation Stop: 01/31/23 08:16 Miscellaneous (Norelgestromin-Ethin.Estradiol [Xulane] 150-35 Mcg/24 Hr Patch ~ Order Awaiting Action) 1 each N/A QS [facility] Stop: 02/01/23 15:59 Last Admin: 01/03/23 17:44 Dose: Not Given Sodium Chloride (Sodium Chloride 0.65% Na Soln 45 Ml ([place])) 1 - 2 sprays NA PRN PRN PRN Reason: Nasal Dryness/Congestion Stop: 01/31/23 08:16 Mental Health & Subst Abuse Tx Psychiatrist Name of Psychiatrist: Suri Nunez- Shanelle Dash Psychiatrist's Date Of Appointment With Psychiatric Provider: 01/11/23 Time of Appointment with Psychiatrist: 2:40 PM Psychiatric Appointment Comment: [address] [facility], [place] [address] Therapist Name of Therapist: Dustin Advances - Yelena Madrigal Therapist's Time of Therapist Appointment: [address], [address], [place] [address] Therapy Appointment Comment: Please resume your normal therapy schedule. Sonography Technologist Name of Sonography Technologist: None Post Discharge Appointments Primary Care Physician Name Of Family Doctor/PCP: Reynold Talavera Primary [facility] Time of Appointment with PCP: [facility] Jenny Mcghee, [place] [id number] Provider Appointment Comment: Please follow-up with your PCP as needed. Contact Information Discharge Discharge Address: [address] [place] [address], [place] [address]
[2023-01-03] MEDS: GABAPENTIN 100 MG CAP PO SCH (20:41)
[2023-01-03] MEDS: LITHIUM CARBONATE 450 MG TABCR PO SCH (21:01)
[2023-01-04] MEDS: GABAPENTIN 100 MG CAP PO SCH (08:44)
[2023-01-04] MEDS: LITHIUM CARBONATE 300 MG TAB PO SCH (08:44)
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
[2023-01-04] MEDS ORDERED: DESTROY THIS MEDICATION ONE (13:57)
--- NOTE | 2023-01-04 13:59 | Discharge Summary ---
Date of Service January 04, 2023 Physical Exam Psychiatric Orientation: alert, oriented to person, oriented to place, oriented to time and cooperative Apperance: appropriately dressed (stereotypically), appropriately groomed and appeared stated age Eye Contact: + fair eye contact Motor Behavior: n tremor Speech: normal rate/rhythm/volume of speech Affect: + constricted affect Mood: + anxious mood Thought Process: clear/coherent thought process Thought Content: + cognitive distortions Suicidal Thoughts: denies suicidal plan and denies suicidal intent; + reports suicidal thoughts (chronic, passive suicidal thoughts) Homicidal Thoughts: denies homicidal thoughts Hallucinations: no auditory hallucinations and no visual hallucinations Cognition: recent memory grossly intact, remote memory grossly intact and attention grossly intact Estimated Intelligence: average estimated intelligence Insight: + limited insight Judgment: + limited judgement Vital Signs (Past 24 Hours) Last Vital Signs Temp 36.8 C 01/04/23 06:47 Pulse 68 01/04/23 06:47 Resp 16 01/04/23 06:47 BP 125/85 01/04/23 06:47 Pulse Ox 98 01/01/23 09:00 O2 Del Method Room Air 01/01/23 09:00 Psychiatric Data See daily stay summary. In short, safety was maintained and the patient was cooperative with care. Medication changes included [] and they tolerated this well. A family session was [held] and safety plan was completed prior to discharge. Day of Discharge Assessment Today the patient voices readiness for discharge. They note improvement in mood and deny thoughts to harm self or others. Thoughts remain organized and they are improved from admission. There is no evidence of psychosis. They agree to take mediations as prescribed and keep follow-up appointments. They are stable for discharge to outpatient level of care. Advance Directives Advance Directives Information Provided: Yes Advance Directives: No Mental Health Advance Directive: No Advance Directives on File: No Living Will: No Power of Melt Helper: No Advance Directives Reason:: Declines as Mental Health Visit. Risk Factors Assessment : Yes Do You Have Access To A Gun?: No Mental Health Diagnoses: Yes Substance Use Disorders: No Previous Attempt: Yes Previous Psychiatric Hospitalization: Yes Protective Factors Assessment Employed: No Supportive Family: Yes Discharge Data Lab Results 01/01/23 01/01/23 01/01/23 02:15 02:20 02:20 WBC RBC Hgb Hct MCV MCH MCHC RDW Std Deviation RDW Coeff of Braydon Plt Count MPV Immature Gran % (Auto) Neut % (Auto) Lymph % (Auto) Levy % (Auto) Eos % (Auto) Baso % (Auto) Neut # (Auto) Lymph # (Auto) Levy # (Auto) Eos # (Auto) Baso # (Auto) Immature Gran # (Auto) Sodium Potassium Chloride Carbon Dioxide Anion Gap BUN Creatinine Est Cr Clr Drug Dosing Est GFR ( Amer) Est GFR (Non-Af Amer) BUN/Creatinine Ratio Glucose Calcium Total Bilirubin AST ALT Alkaline Phosphatase Total Protein Albumin Globulin Albumin/Globulin Ratio TSH Urine Color Yellow Urine Appearance Cloudy A Urine pH 8.0 H Ur Specific [place] 1.007 Urine Protein Negative Urine Glucose (UA) Negative Urine Ketones Negative Urine Blood Negative Urine Nitrite Negative Urine Bilirubin Negative Urine Urobilinogen Negative Ur Leukocyte Esterase 3+ H Urine WBC (Auto) 10-30 H Urine RBC (Auto) 0-4 U Hyaline Cast (Auto) 1-5 U Epithel Cells (Auto) >30 H Urine Bacteria (Auto) 2+ H POC Ur Test Urine Opiates Screen Neg Ur Methadone, Qual Neg Urine Barbiturates Neg Ur Phencyclidine (PCP) Neg U Amphetamin/Meth Scrn Neg MDMA (Ecstasy) Screen Neg U Benzodiazepines Scrn Neg Ur Cocaine Metabolite Neg U Marijuana (THC) Screen Neg Ethyl Alcohol mg/dL SARS-CoV-2, RNA, NAAT NEGATIVE 01/01/23 01/01/23 01/01/23 02:20 02:29 02:29 WBC 7.03 RBC 3.81 L Hgb 12.5 Hct 36.3 L MCV 95.3 MCH 32.8 MCHC 34.4 RDW Std Deviation 40.6 RDW Coeff of Braydon 11.7 Plt Count 348 MPV 10.4 Immature Gran % (Auto) 0.3 Neut % (Auto) 51.5 Lymph % (Auto) 38.7 Levy % (Auto) 7.3 Eos % (Auto) 1.6 Baso % (Auto) 0.6 Neut # (Auto) 3.63 Lymph # (Auto) 2.72 Levy # (Auto) 0.51 Eos # (Auto) 0.11 Baso # (Auto) 0.04 Immature Gran # (Auto) 0.02 Sodium 136 Potassium 3.9 Chloride 106 Carbon Dioxide 26 Anion Gap 4 BUN 8 Creatinine 0.68 Est Cr Clr Drug Dosing Not Reportable Est GFR ( Amer) 147.0 Est GFR (Non-Af Amer) 126.8 BUN/Creatinine Ratio 11.8 Glucose 93 Calcium 9.3 Total Bilirubin 0.7 AST 20 ALT 19 Alkaline Phosphatase 76 Total Protein 7.2 Albumin 4.2 Globulin 3.0 Albumin/Globulin Ratio 1.4 TSH Urine Color Urine Appearance Urine pH Ur Specific [place] Urine Protein Urine Glucose (UA) Urine Ketones Urine Blood Urine Nitrite Urine Bilirubin Urine Urobilinogen Ur Leukocyte Esterase Urine WBC (Auto) Urine RBC (Auto) U Hyaline Cast (Auto) U Epithel Cells (Auto) Urine Bacteria (Auto) POC Ur Test NEG Urine Opiates Screen Ur Methadone, Qual Urine Barbiturates Ur Phencyclidine (PCP) U Amphetamin/Meth Scrn MDMA (Ecstasy) Screen U Benzodiazepines Scrn Ur Cocaine Metabolite U Marijuana (THC) Screen Ethyl Alcohol mg/dL SARS-CoV-2, RNA, NAAT 01/01/23 01/01/23 02:29 02:29 WBC RBC Hgb Hct MCV MCH MCHC RDW Std Deviation RDW Coeff of Braydon Plt Count MPV Immature Gran % (Auto) Neut % (Auto) Lymph % (Auto) Levy % (Auto) Eos % (Auto) Baso % (Auto) Neut # (Auto) Lymph # (Auto) Levy # (Auto) Eos # (Auto) Baso # (Auto) Immature Gran # (Auto) Sodium Potassium Chloride Carbon Dioxide Anion Gap BUN Creatinine Est Cr Clr Drug Dosing Est GFR ( Amer) Est GFR (Non-Af Amer) BUN/Creatinine Ratio Glucose Calcium Total Bilirubin AST ALT Alkaline Phosphatase Total Protein Albumin Globulin Albumin/Globulin Ratio TSH 1.609 Urine Color Urine Appearance Urine pH Ur Specific [place] Urine Protein Urine Glucose (UA) Urine Ketones Urine Blood Urine Nitrite Urine Bilirubin Urine Urobilinogen Ur Leukocyte Esterase Urine WBC (Auto) Urine RBC (Auto) U Hyaline Cast (Auto) U Epithel Cells (Auto) Urine Bacteria (Auto) POC Ur Test Urine Opiates Screen Ur Methadone, Qual Urine Barbiturates Ur Phencyclidine (PCP) U Amphetamin/Meth Scrn MDMA (Ecstasy) Screen U Benzodiazepines Scrn Ur Cocaine Metabolite U Marijuana (THC) Screen Ethyl Alcohol mg/dL < 10.0 SARS-CoV-2, RNA, NAAT Hospital Course (1) Bipolar I disorder, most recent episode mixed, moderate: (2) Post traumatic stress disorder (PTSD): (3) Autism spectrum disorder: Plan 01/03/2023: * anticipate discharge tomorrow * discontinue duloxetine * continue LiCO3 300 mg QAM & 450 mg QHS, consider consolidation to single HS dose to reduce long-term renal risk * continue gabapentin 100 mg QAM & 200 mg QHS (used primarily for anxiety) * continue noelgestromin/ethinyl estradiol patch (used for premenstrual mood and anxiety exacerbations) 01/02/2023: Reviewed known risks and anticipated benefits of, and alternatives to, a trial of duloxetine ("Cymbalta") for depressed mood, generalized anxiety, and PTSD symptoms including but not limited to headache, GI side effects, rare elevated blood pressure, quite rare severe diaphoresis, and known risk of unpleasant discontinuation symtoms with abrupt cessation. Pt provided informed consent for a trial of this medication. * start duloxetine 20 mg daily, titrate to 60 mg daily contingent on tolerability * continue LiCO3 300 mg QAM & 450 mg QHS, consider consolidation to single HS dose to reduce long-term renal risk * continue gabapentin 100 mg QAM & 200 mg QHS (used primarily for anxiety) * continue noelgestromin/ethinyl estradiol patch (used for premenstrual mood and anxiety exacerbations) 01/01/2023: The patient was admitted to the [facility] ([facility] mental health unit) on q15 min checks (behavioral with suicide precautions) for safety. The patient will participate in group, recreational, and milieu therapies and will be offered additional individual and family sessions as clinically appropriate. Discussed venlafaxine as fastest and most effective means of treating venlafaxine discontinuation Sx and pt agreed to a dose today. We discussed options of having family bring in desvenlafaxine (non-formulary here) vs a trial of duloxetine and I asked him to think about his preferences. * continue LiCO3 300 mg QAM & 450 mg QHS, consider consolidation to single HS dose to reduce long-term renal risk * continue gabapentin 100 mg QAM & 200 mg QHS (used primarily for anxiety) * continue noelgestromin/ethinyl estradiol patch (used for premenstrual mood and anxiety exacerbations) Mental Health & Subst Abuse Tx Psychiatrist Name of Psychiatrist: Suri Nunez- Shanelle Robersonin Psychiatrist's Date Of Appointment With Psychiatric Provider: 01/11/23 Time of Appointment with Psychiatrist: 2:40 PM Psychiatric Appointment Comment: [address], [place] [address] Therapist Name of Therapist: Dustin Doran - Yelena Rohan Therapist's Time of Therapist Appointment: [address], [address], [place] [address] Therapy Appointment Comment: Please resume your normal therapy schedule. Integrity Analyst Name of Integrity Analyst: None Post Discharge Appointments Primary Care Physician Name Of Family Doctor/PCP: Reynold Talavera Primary Care Time of Appointment with PCP: [address] [place] [address] Provider Appointment Comment: Please follow-up with your PCP as needed. Contact Information Discharge Discharge Address: [address] [place] [address], [place] [address] Discharge Plan Discharge Items Patient Disposition: Home - Self-Care Reason For Visit: MDD Discharge Diagnosis: Bipolar I Disorder, Mixed, Moderate Activity: Resume your previous activity Non-emergency contact: Primary Care Provider and Psychiatrist Call non-emergency contact if: you have any medication questions and your symptoms worsen Follow-up/Referrals: Belinda Talavera MD [Primary Care Provider] - Diet: Regular Addtl Attending Provider Instructions: SPECIAL CARE INSTRUCTIONS: 1. Follow through with your scheduled aftercare appointments. If unable to keep an appointment, please call to reschedule. 2. Take your medication only as prescribed. Medication should not be changed or stopped without the approval of your doctor. In the event of worsening symptoms or concerns about side effects, contact your doctor immediately. 3. Utilize new healthy coping skills, anger management skills, and stress management skills learned during your hospitalization. Journal feelings and process them with a support person. Identify stressors or situations that may result in relapse, deterioration or inappropriate behaviors and develop a plan to deal with those issues. 4. If your coping skills are ineffective and you are in crisis, contact your outpatient providers for direction. If unable to reach your providers, please call the [facility] CRISIS LINE AT , go to the [facility] walk-in center at [address], [place], or go to the closest Emergency Room. 5. Avoid alcohol and un-prescribed drugs. 6. You have been provided with the Mental Health Advance Directives Pamphlet for your review. 7. Your condition is stable for discharge to outpatient level of care, but recovery is an ongoing process. Ifthoughts to harm yourself or others return, follow the safety plan developed during your stay. Planning for a safe return home includes securing weapons. Our treatment team recommends weaponsbe removed from the home until your outpatient provider reassesses your progress. In rare cases where the items themselvescannot be removed, guns and ammunitionshould be secured separatelyand keys stored by a reliable personoutside of the home. If you were admitted on an involuntary commitment, the police or other legal authorities may be involved in this process. AFTERCARE APPOINTMENTS: * Please call your insurance company prior to your scheduled appointment to confirm your aftercare providers are covered. Take your insurance information to your appointments. WHO TO CALL AND WHEN: Medical Emergencies: For questions or emergencies related to your hospital stay, please contact the Inpatient Behavioral Health Unit at [phone]. A [facility] specialist is on-call 24/01 for the Behavioral Health Unit for emergencies At any time you feel your situation is an emergency, you may also call 911 immediately. Pending Studies at Discharge: No Stand-Alone Forms: [facility], Smoking Cessation Medications and DC Order Prescriptions: New hydroxyzine HCl 25 mg Tablet 25 mg PO Q4H PRN (Reason: anxiety) 30 Days Qty: 60 0RF Continued lithium carbonate 300 mg capsule 300 mg PO QAM Rx Instructions: take at 1100 lithium carbonate 450 mg tablet extended release 450 mg PO QPM gabapentin 100 mg capsule See Rx Instructions .ROUTE .COMPLEX Rx Instructions: TAKES 100 MG QAM, THEN 200 MG QPM. Xulane 150-35 mcg/24 hr patch weekly 1 patch transdermal WK Rx Instructions: WEDNESDAYS Discontinued desvenlafaxine succinate 25 mg Tablet Extended Release 24 Hr 25 mg PO DAILY Discharge Orders: Discharge Order (Routine); Ordered 01/04/23 Ordered By: Devyn Maynard Admission Data Admit Date/Time: 01/01/23 08:17 Attending Provider: Devyn Maynard Admit Provider: Maynard,Devyn A. Primary Care Provider: Belinda Talavera Coding Diagnoses Bipolar I disorder, most recent episode mixed, moderate F31.62 Post traumatic stress disorder (PTSD) F43.10 Autism spectrum disorder F84.0
== END 2023-01-04 14:30 | disposition home or self-care (01) | DRG 885 ==
LOC: ED 01:58 → 3S 08:17